=== PATIENT | female | born 1985 | race Caucasian/White ===

== ENCOUNTER → 2018-10-20 11:29 | Outpatient (CLI) | payer OTHER, SELFPAY ==
--- NOTE | 2018-10-20 11:31 | DI.RAD.S_ITS ---
PROCEDURE: HL HYSTEROSAPINGOGRAPHY INDICATIONS: infertility COMPARISON: None. FINDINGS: Patient had a documented negative test prior to the study. Following speculum insertion, a balloon-tip catheter was inserted into the cervical canal, and secured by inflating the balloon. Contrast was then injected into the endometrial canal. Uterus: The uterine cavity appears normal in size and morphology, without synechiae or masses. Fallopian tubes: Both fallopian tubes fill with contrast, and appear normal in caliber and morphology. Rapid dispersion of contrast into the peritoneal cavity through the fallopian tubes. IMPRESSION: Normal exam. Dictated by: Stas Garcia M.D. on 10/20/2018 at 14:15 Approved by: Stas Garcia M.D. on 10/20/2018 at 14:16
== END ==
PROVIDERS: PCP Family Medicine
DX: Z31.9 Encounter for procreative management, unspecified (principal)
CPT/HCPCS: 74740

== ENCOUNTER → 2019-02-10 11:03 | Outpatient (CLI) | payer OTHER, SELFPAY ==
[2019-02-10 15:15] LABS: Urine N gonorrhoeae NOT DETECTED
[2019-02-10 15:17] LABS: Urine Chlamydia NOT DETECTED
== END ==
PROVIDERS: PCP Family Medicine
DX: Z34.81 Encounter for supervision of other normal pregnancy, first trimester (principal); Z3A.09 9 weeks gestation of pregnancy
CPT/HCPCS: 87491; 87591

== ENCOUNTER → 2019-03-02 12:32 | Outpatient (CLI) | payer OTHER, SELFPAY ==
[2019-03-02 13:07] LABS: Appearance Urine UA CLEAR; Bilirubin Urine UA NEGATIVE (NEGATIVE); Color Urine UA YELLOW; Glucose Urine UA NEGATIVE (Negative); Ketones Urine UA NEGATIVE (NEGATIVE); Leukocyte Esterase Urine UA NEGATIVE (NEGATIVE); Nitrite Urine UA NEGATIVE (Negative); Occult Blood Urine UA NEGATIVE (Negative); Protein Urine UA NEGATIVE (Negative); Specific Gravity Urine UA <=1.005 (1.000-1.035); Urobilinogen Urine UA 0.2 E.U./dL (0.2)
[2019-03-02 13:20] LABS: Add Manual Diff / Slide Review NO; Basophils Absolute Auto 0 /uL (0-100); Basophils Percent Auto 0.2 % (0-2); Eosinophils Absolute Auto 100 /uL (0-450); Eosinophils Percent Auto 0.7 % (2-4); Hematocrit 40.5 % (36-46); Hemoglobin 13.9 g/dL (12.0-16.0); Lymphocytes Absolute Auto 2000 /uL (1100-4500); Lymphocytes Percent Auto 19.4 % (25-40); Mean Corpuscular HGB Conc 34.3 % (30-36); Mean Corpuscular Hemoglobin 30.2 PG (26-34); Mean Corpuscular Volume 88.1 fL (80-100); Monocytes Absolute Auto 400 /uL (0-900); Monocytes Percent Auto 4.1 % (3-14); Neutrophils Absolute Auto 7600 /uL (1500-7000); Neutrophils Percent Auto 75.6 % (50-75); Platelet Count 241 X10^3/uL (150-400); Red Cell Distribution Width 12.2 % (11.6-14.8); White Blood Cell Count 10.1 X10^3/uL (4.5-11.0)
[2019-03-02 14:07] LABS: Glucose 80 mg/dL (70-100)
[2019-03-02 15:56] LABS: Hepatitis B Surface Antigen NEGATIVE s/c (NEGATIVE); Rubella Antibody IgG 54.8 IU/mL (>15)
[2019-03-02 16:06] LABS: HIV 1 & 2 Ab/Ag 4th Gen Combo NEGATIVE (NEGATIVE); Hep C Virus Ab w/Reflex Quant NEGATIVE s/c (NEGATIVE)
[2019-03-04 19:21] LABS: RPR Screen Nonreactive (Nonreactive)
== END ==
PROVIDERS: PCP Family Medicine
DX: Z34.81 Encounter for supervision of other normal pregnancy, first trimester (principal)
CPT/HCPCS: 36415; 80055; 81003; 82947; 83036; 86787; 86803; 86850; 86900; 86901; 87086; 87389

== ENCOUNTER → 2019-03-10 16:42 | Outpatient (CLI) | payer OTHER, SELFPAY ==
[2019-03-16 11:46] LABS: Sequential Screen 1st Trimeste FINAL RESULT PENDING
== END ==
PROVIDERS: PCP Family Medicine
DX: Z34.81 Encounter for supervision of other normal pregnancy, first trimester (principal); Z36.0 Encounter for antenatal screening for chromosomal anomalies; Z3A.13 13 weeks gestation of pregnancy
CPT/HCPCS: 36415; 84163; 84702

== ENCOUNTER → 2019-04-07 12:13 | Outpatient (CLI) | payer OTHER, SELFPAY ==
[2019-04-11 14:03] LABS: Sequential Screen 2nd Trimeste SCREEN NEGATIVE
== END ==
PROVIDERS: PCP Family Medicine
DX: Z34.82 Encounter for supervision of other normal pregnancy, second trimester (principal); Z36.0 Encounter for antenatal screening for chromosomal anomalies
CPT/HCPCS: 36415; 82105; 82677; 84163; 84702; 86336

== ENCOUNTER → 2019-06-30 09:52 | Outpatient (CLI) | payer OTHER, SELFPAY ==
[2019-06-30 12:40] LABS: Hematocrit 34.2 % (36-46); Hemoglobin 11.6 g/dL (12.0-16.0)
[2019-06-30 12:59] LABS: GTT (PREG) 1 Hour PP 50gm Dose 146 mg/dL (76-139)
== END ==
PROVIDERS: PCP Family Medicine
DX: Z34.82 Encounter for supervision of other normal pregnancy, second trimester (principal); Z3A.24 24 weeks gestation of pregnancy
CPT/HCPCS: 36415; 82950; 85014; 85018

== ENCOUNTER → 2019-07-24 08:18 | Outpatient (CLI) | payer OTHER, SELFPAY ==
[2019-07-24 09:31] LABS: Glucose Fasting 89 mg/dL (70-100)
[2019-07-24 10:49] LABS: Glucose 1 Hour 136 mg/dL (70-170)
[2019-07-24 11:39] LABS: Glucose Tol Interpretation INTERPRETATION
[2019-07-24 13:08] LABS: Glucose 2 Hour 129 mg/dL (70-140)
[2019-07-24 13:13] LABS: Glucose 3 Hour 115 mg/dL (70-115)
== END ==
PROVIDERS: PCP Family Medicine
DX: O99.810 Abnormal glucose complicating pregnancy (principal); Z3A.30 30 weeks gestation of pregnancy
CPT/HCPCS: 36415; 82951; 82952

== ENCOUNTER → 2019-08-11 11:25 | Outpatient (CLI) | payer OTHER, SELFPAY ==
[2019-08-12 10:06] LABS: Strep Grp B PCR NEG for Grp B Strep
== END ==
PROVIDERS: PCP Family Medicine
DX: Z34.83 Encounter for supervision of other normal pregnancy, third trimester (principal); Z3A.35 35 weeks gestation of pregnancy
CPT/HCPCS: 87653

== ENCOUNTER → 2019-09-06 09:23 | Outpatient (CLI) | payer OTHER, SELFPAY ==
[2019-09-06 22:43] LABS: COVID19 Sendout Not Detected (Not Detect)
== END ==
PROVIDERS: PCP Family Medicine; Visit Provider Registered Nurse
DX: Z01.812 Encounter for preprocedural laboratory examination (principal)
CPT/HCPCS: 87635

== ENCOUNTER 2019-09-08 05:40 | Inpatient (IN) | payer OTHER, SELFPAY ==
[2019-09-08] VITALS (7 sets, daily range): BP systolic 99–138; BP diastolic 60–81; PULSE 65–75; RESP 12–16; TEMP 36.4–37.3; O2SAT 99–100
--- NOTE | 2019-09-08 | PATH_ITS ---
[facility] Accession Number: [id number] . 01 Material submitted: . fallopian tube - SEGMENTS OF BILATERAL FALLOPIAN TUBES . 02 Diagnosis: Segments of Bilateral Fallopian Tubes, Tubal Ligation: Complete cross-section of segments of fallopian tube x2. V 09/11/2019 1016 Local . 02 Electronically signed: . Geena Aragon MD, Pathologist NPI- [id number] . 01 Gross description: . Received in one formalin-filled container, labeled with the patient's name and labeled segments of mike fallopian tubes, are two nonfimbriated, cylindrical-shaped portions of tissue. The first measures 0.6 x 0.5 x 0.5 cm; bisected and totally submitted in cassette A1. The second piece measures 0.6 x 0.5 x 0.5 cm; bisected and totally submitted in cassette A2. ([id number]) /[facility] 09/09/2019 1038 Local . 02 Pathologist provided ICD-10: Z98.891, Z30.2 . 02 CPT . 904644 Performed at: 01 [facility] [address], [place], [place] [id number] MD Kaiden Villa MD Phone: [phone] Performed at: 02 [facility] [address] [place], [place] [id number] MD Quiana Corrales MD Phone: [phone]
[2019-09-08 06:36] LABS: Add Manual Diff / Slide Review NO; Basophils Absolute Auto 0 /uL (0-100); Basophils Percent Auto 0.2 % (0-2); Eosinophils Absolute Auto 100 /uL (0-450); Eosinophils Percent Auto 0.9 % (2-4); Hematocrit 36.3 % (36-46); Hemoglobin 12.6 g/dL (12.0-16.0); Lymphocytes Absolute Auto 2200 /uL (1100-4500); Mean Corpuscular HGB Conc 34.6 % (30-36); Mean Corpuscular Hemoglobin 31.5 PG (26-34); Mean Corpuscular Volume 90.9 fL (80-100); Monocytes Absolute Auto 500 /uL (0-900); Monocytes Percent Auto 4.7 % (3-14); Neutrophils Absolute Auto 7700 /uL (1500-7000); Neutrophils Percent Auto 73.2 % (50-75); Platelet Count 185 X10^3/uL (150-400); Red Blood Cell Count 3.99 X10^6/uL (4.0-5.2); Red Cell Distribution Width 13.2 % (11.6-14.8); White Blood Cell Count 10.5 X10^3/uL (4.5-11.0)
--- NOTE | 2019-09-08 07:22 | PM.OBHP.1 ---
OB HPI Date/Time Date of admission: 09/08/19 Date Patient Seen: 09/08/19 Time Patient Seen: 07:22 History of Present Condition Chief complaint: [id number] : 3 Para: 1 Estimated Date of Delivery: 09/15/19 Estimated Gestational Age (weeks): 39 Narrative: Brenda Middleton is a 34 year old female admitted for repeat and bilateral tubal ligation Indications Operative indications ( section): previous uterine surgery History of Present care: good care, initiated at week # (8), number of visits (12) and pounds weight gain (23) Dating criteria: based on 1st trimester US only Ultrasounds: normal mid trimester US Obstetrical complications: none Medical complications: none Preadmission Labs Blood type: O (+) positive -: Antibody screen: negative, GBS status: negative, HBsAG: negative, HIV: negative and RPR/VDLR: negative -: Chlamydia screen: not detected and Gonorrhea screen: not detected -: Rubella: immune and Varicella: immune HCAB: negative PAP: Normal Sequential screen: Normal 3 hr GTT: 1 hr (136), 2 hr (129) and 3 hr (115) Fasting blood glucose: 89 Prior (ies) History: 10/07/2014 41.4 weeks emergency for abruption, female 8 lb 1 oz Evaluation Evaluation Baseline heart rate: 125 Variability: Moderate (11-25) monitor accelerations: Present monitor decelerations: Absent Contraction Frequency (minutes): 0 Category of Tracing: I Laboratory results: Laboratory Tests 09/08/19 09/08/19 06:10 06:10 WBC 10.5 RBC 3.99 L Hgb 12.6 Hct 36.3 MCV 90.9 MCH 31.5 MCHC 34.6 RDW 13.2 Plt Count 185 Neut % (Auto) 73.2 Lymph % (Auto) 21.0 L [place] % (Auto) 4.7 Eos % (Auto) 0.9 L Baso % (Auto) 0.2 Neut # (Auto) 7700 H Lymph # (Auto) 2200 [place] # (Auto) 500 Eos # (Auto) 100 Baso # (Auto) 0 Blood Type O Positive Antibody Screen Negative [facility] Medical History (Updated 02/07/19 @ 12:20 by Linda Heard RN) Anxiety (Chronic) Genital warts (Chronic ~2005) Human papilloma virus (Chronic ~2005) Infertility (Acute) Surgical History (Updated 02/07/19 @ 12:17 by Linda Heard RN) H/O colposcopy with cervical biopsy (Acute) Status post delivery (10/17/14) Family History (Updated 02/07/19 @ 12:18 by Linda Heard RN) Grandmother Cancer Grandfather No problems noted. Grandfather No problems noted. Mother Anxiety Social History marital status: number of children: 1 household members: spouse lives independently: Yes pets and animals: Yes education level: college occupational status: employed current occupational exposures/hazards: No special amaya needs: No travel history: recent leisure activities: exercise Smoking Status: Former smoker alcohol intake: current substance use type: does not use during the past year weight has: remained stable Type(s) of exercise: walking Meds Home Medications and Allergies Home Medications Medication Instructions Recorded Confirmed Type VIT/IRON FUMARATE/FA 1 ea PO Q DAY #30 ea 04/28/16 09/01/19 Rx (MYNATAL-Z CAPTAB) Allergies Allergy/AdvReac Type Severity Reaction Status Date / Time No Known Drug Allergies Allergy Verified 09/07/19 07:16 Review of Systems Review of Systems Narrative: Patient denies headaches, scotomata, epigastric pain. Good movement. No rupture membranes. ROS: Yes All systems reviewed with the patient and are negative except as otherwise documented Exam Vital Signs (past 8 hours): Blood pressure 138/81, pulse of 83, temperature 99.2? Narrative Exam Narrative: HEENT exam within normal limits. Lungs are clear to auscultation and percussion. Heart is regular rate and rhythm no S3-S4 or murmurs. Abdomen is gravid and nontender. Fetus is vertex. Extremities without edema and nontender Objective Labs Result Diagrams: 09/08/19 06:10 Labs: Laboratory Results - last 24 hr 09/08/19 09/08/19 06:10 06:10 WBC 10.5 RBC 3.99 L Hgb 12.6 Hct 36.3 MCV 90.9 MCH 31.5 MCHC 34.6 RDW 13.2 Plt Count 185 Neut % (Auto) 73.2 Lymph % (Auto) 21.0 L [place] % (Auto) 4.7 Eos % (Auto) 0.9 L Baso % (Auto) 0.2 Neut # (Auto) 7700 H Lymph # (Auto) 2200 [place] # (Auto) 500 Eos # (Auto) 100 Baso # (Auto) 0 Blood Type O Positive Antibody Screen Negative Assessment and Plan Assessment and Plan Assessment and Plan narrative: 39 week gestation with prior section and undesired fertility requesting repeat section and bilateral tubal ligation
--- NOTE | 2019-09-08 07:29 | PM.PREOP ---
Pre-operative Note COVID-19 COVID-19 status: Negative Result date/Date tested (Pos, Neg/Pending): 09/06/19 Interval Note History & Physical reviewed/Exam performed by Physician: Yes Changes to H&P: No
[2019-09-08] MEDS: CEFAZOLIN 2 GM/100 ML FROZ.PIGGY IV (07:35)
--- NOTE | 2019-09-08 08:00 | SUR.OPER ---
Supine on Padded OR bed, head on pillow, safety belt at thigh, arms secured on padded arm boards at <90 degrees abduction. Bump under right buttock. Legs uncrossed with pillow under knees, gel pad to heels, tape over blanket to lower legs.
--- NOTE | 2019-09-08 08:12 | SUR.OPER ---
FHR 150 TOB at 08:02 alive baby boy Cord blood x 2 and placenta given to OB nurse
[2019-09-08] MEDS: KETOROLAC 30 MG/ML VIAL IV ×3 (08:20→20:40)
[2019-09-08] MEDS: LACTATED RINGERS 1,000 ML 100 ML IV ×2 (08:24→10:15)
--- NOTE | 2019-09-08 08:50 | PM.OP.1 ---
Operative Date/Time/Diagnoses Date of procedure: 09/08/19 Time of procedure: 08:50 Pre-op diagnosis: 39 weeks with prior section and sterilization Post-op diagnosis: same Procedure & Clinicians Procedure: Repeat low-transverse section with bilateral tubal ligation Same procedure as scheduled: Yes Indications: 39 weeks with prior section and wish for sterilization Surgeon: Cecilia Chu [employer] Specialist: Liset Santa Click Yes if Unassisted: No Anesthesia Type: Spinal Operative Notes Findings: Normal tubes, ovaries with mild adhesions between the tubes and ovaries. Extremely thin lower uterine segment. Viable male weighing 8 lb 11 oz with Apgars of 8 and 9 Closure Type: primary Specimen(s): other (Bilateral tubal segment) Applied: catheter (Kauffman) Estimated Blood Loss (mL): 450 Blood products transfused: none Procedure in detail: The patient was brought to the operating room where she underwent a spinal for anesthesia. She was placed in a supine position with a left lateral tilt. A Kauffman catheter was placed. Pulsatile stockings were placed and functional throughout the case. 2 g of Ancef were given IV prior to the incision. Warming was in place. The patient was prepped and draped in usual sterile fashion. A low transverse incision was made with a scalpel and the incision was carried down to the fascial layer which was incised transversely with scissors. The midline attachments are superiorly and inferiorly. Some bleeding was controlled Bovie. The rectus muscles were in the midline and the peritoneal incision was made with no damage to internal structures. The peritoneum was incised and superiorly and inferiorly. Bladder blade was placed and a bladder flap was developed and the bladder held away from the lower uterine segment. An incision was made in the uterus with the scalpel and the incision was extended with stretching. The head was elevated out of the abdomen and with fundal pressure the baby was delivered. The was bulb suctioned for clear fluid and handed off to the warmer. Cord blood was collected. The placenta delivered spontaneously with traction. The uterus was cleaned with clean laps. The uterine incision was closed in 2 layers of 0 chromic suture the first a running locking layer the second an imbricating layer. The bladder peritoneum was repaired with 2-0 Vicryl suture. The gutters were cleaned of any remaining fluids and ovaries and tubes were observed to be normal. Cheswold was used to grasp the fallopian tube on the right side. A segment of the tube was tied off x2 with 0 plain suture with the intervening section removed. Adequate hemostasis was noted. The perineum was closed with 2-0 Vicryl suture. The fascia layer was closed with 0 Vicryl suture with 2 stitches. The incision was irrigated and adequate hemostasis noted. The incision was closed with interrupted 3-0 Vicryl sutures and then a subcuticular stitch of 4-0 Vicryl suture. Steri-Strips were placed. The uterus was massaged to remove any clots. The patient went to recovery room in good condition. Counts of instruments and sponges were correct. Complications: none Post-operative Condition: stable Disposition: other ( Center) Plan for aftercare: Routine post section
[2019-09-08] MEDS: LANOLIN OINT 7 GM 1 APPLIC TOP (12:01)
[2019-09-08] MEDS: OXYCODONE IR 10 MG TABLET PO ×2 (12:01→16:21)
[2019-09-08] MEDS: ACETAMINOPHEN 325 MG TABLET 650 MG PO (20:40)
[2019-09-09] MEDS: KETOROLAC 30 MG/ML VIAL IV (02:40)
[2019-09-09] MEDS: ACETAMINOPHEN 325 MG TABLET 650 MG PO ×2 (02:40→09:47)
[2019-09-09 06:46] LABS: Add Manual Diff / Slide Review NO; Basophils Absolute Auto 0 /uL (0-100); Basophils Percent Auto 0.3 % (0-2); Eosinophils Absolute Auto 100 /uL (0-450); Eosinophils Percent Auto 1.4 % (2-4); Hematocrit 30.4 % (36-46); Hemoglobin 10.4 g/dL (12.0-16.0); Lymphocytes Absolute Auto 2100 /uL (1100-4500); Lymphocytes Percent Auto 20.3 % (25-40); Mean Corpuscular HGB Conc 34.2 % (30-36); Mean Corpuscular Hemoglobin 31.6 PG (26-34); Mean Corpuscular Volume 92.3 fL (80-100); Monocytes Absolute Auto 700 /uL (0-900); Monocytes Percent Auto 6.3 % (3-14); Neutrophils Absolute Auto 7500 /uL (1500-7000); Neutrophils Percent Auto 71.7 % (50-75); Platelet Count 139 X10^3/uL (150-400); Red Blood Cell Count 3.29 X10^6/uL (4.0-5.2); Red Cell Distribution Width 13.3 % (11.6-14.8); White Blood Cell Count 10.5 X10^3/uL (4.5-11.0)
[2019-09-09] MEDS: DOCUSATE 250 MG CAPSULE PO (09:03)
[2019-09-09] MEDS: IBUPROFEN 600 MG TABLET PO ×2 (09:05→17:45)
--- NOTE | 2019-09-09 10:41 | PM.OBPN.1 ---
Subjective - OB Subjective Patient comments: incisional pain baby status: nursing well feeding status: exclusively breast feeding Date Patient Seen: 09/09/19 Time Patient Seen: 10:41 Interval history: Post section day 1. Patient is able to urinate since Kauffman catheter removed. She is not passing gas yet. She is ambulatory. She does complain of incision and pain and cramping with breast-feeding but overall is doing well. She denies headaches, scotomata, epigastric pain. Exam Vital Signs (past 8 hours): Blood pressure 105/58, pulse 75, temperature 98.1? Oxygen Delivery Method Room Air Narrative Exam Narrative: Abdomen is soft, nontender. Uterus is firm, at U, appropriately tender. Dressing is clean, dry, intact. Mild lochia. Extremities with trace edema and nontender. Patient's blood type is O positive, she is rubella immune. She did not received Tdap. Objective Labs Result Diagrams: 09/09/19 06:20 Labs: Laboratory Results - last 24 hr 09/09/19 06:20 WBC 10.5 RBC 3.29 L Hgb 10.4 L Hct 30.4 L MCV 92.3 MCH 31.6 MCHC 34.2 RDW 13.3 Plt Count 139 L Neut % (Auto) 71.7 Lymph % (Auto) 20.3 L [place] % (Auto) 6.3 Eos % (Auto) 1.4 L Baso % (Auto) 0.3 Neut # (Auto) 7500 H Lymph # (Auto) 2100 [place] # (Auto) 700 Eos # (Auto) 100 Baso # (Auto) 0 Assessment & Plan Assessment and Plan (1) Delivery by section: Status: Acute (2) Sterilization: Status: Acute Plan day: 1 plan OB: routine postop care Comments: Patient is doing well. She has not passed gas yet. Patient is considering going home later today or tomorrow. Time Spent With Patient Time: Total time spent is greater than 50% in coordination of care (as documented) at patient's floor/unit and/or counseling patient: Time with patient: less than 15 minutes
[2019-09-09] MEDS: OXYCODONE IR 10 MG TABLET PO ×2 (17:45→22:00)
[2019-09-10] MEDS: IBUPROFEN 600 MG TABLET PO ×2 (01:50→07:51)
[2019-09-10] MEDS: OXYCODONE IR 10 MG TABLET PO ×2 (01:50→09:40)
[2019-09-10] MEDS: DOCUSATE 250 MG CAPSULE PO (07:51)
--- NOTE | 2019-09-10 08:37 | P.DS_ITS ---
Discharge Providers Provider Date of admission: 09/08/19 05:40 Discharge Date: 09/10/19 Primary care physician: Ann-Marie Ferreira DO Consults: 09/08/19 09:57 Consult to Dining Room Attendant Routine Comment: Discharge provider: Ann-Marie Ferreira DO Summary Hospital Course Date Patient Seen: 09/10/19 Time Patient Seen: 08:37 Procedures: Repeat low transverse section with bilateral tubal ligation Hospital Course: Patient is a 34-year-old G3-now-P2 after uncomplicated repeat C- section with bilateral tubal ligation. course has been uncomplicated. She is ambulating, eating, voiding and passing flatus. Vaginal bleeding is light. Pain well controlled with ibuprofen and oxycodone. is going very well. No issues in the . She will follow-up in clinic in 1 week for Aquacel removal. Advised patient call for fevers, severe pain or bleeding through more than a pad an hour. Peripartum Data Infant Delivery Method: Section complications: none Jeffrey 1: Gender: Male Disposition of : home Discharge Diagnosis (1) Delivery by section: Status: Acute (2) Sterilization: Status: Acute Time Spent with Patient Time attestation: Total time spent providing and/or coordinating discharge services: Objective Labs Result Diagrams: 09/09/19 06:20 Exam Vital Signs (past 8 hours): Oxygen Delivery Method Room Air Temperature 98.2? blood pressure 119/73 heart rate 88 Narrative Exam Narrative: General: Awake and alert, no acute distress. HEENT: NCAT, EOMI, moist oral mucosa CV: Regular rate and rhythm, no murmurs, rubs or gallops Lungs: CTAB, no wheezes, rales, or rhonchi Abdomen: Aquacel dressing intact without drainage. Soft, nontender; bowel tones active; uterus firm 1 cm below umbilicus. Extremities: Warm, no edema bilaterally Discharge Plan Discharge Plan Patient Disposition: Home Discharge orders & Medications Prescriptions: New ibuprofen 600 mg Tablet 600 mg PO Q6HR PRN (Reason: Fever/Mild Pain (1-3)) Qty: 30 RF: 0 oxycodone-acetaminophen [Percocet] 5-325 mg tablet 2 tab PO Q4-6H PRN (Reason: pain) Qty: 30 RF: 0 oxycodone-acetaminophen [Percocet] 5-325 mg tablet 2 tab PO Q4-6H PRN (Reason: pain) Qty: 30 RF: 0 ibuprofen 600 mg tablet 600 mg PO Q6H PRN (Reason: pain) Qty: 30 RF: 0 Continued VIT/IRON FUMARATE/FA (MYNATAL-Z CAPTAB) 1 ea PO Q DAY Qty: 30 RF: 11 Follow up/Referrals: Cecilia Chu MD [Physician] - 1 Week (Will need to be seen by Dr. Santa or Dr. Rodriguez for Aquacel removal and incision check) Ann-Marie Ferreira DO [Primary Care Provider] - Diet/Activity/Treatments Diet: Regular Activity: No lifting over 20 lb or or anything in vagina for 6 weeks Skin/Wound/Dressing Care Report to your healthcare provider any signs of infection, such as:: chills, fever and increased pain Dressing: Leave dressing in place until one-week follow-up visit Visit Report/Discharge Packet Visit Report Forms: Patient Portal/API, Stroke Signs & Symptoms Discharge Data Primary Care Provider: Ann-Marie Ferreira
[2019-09-10 08:48] VITALS: BP 119/73; PULSE 88; RESP 17; TEMP 36.8
== END 2019-09-10 12:00 | disposition home or self-care (01) | DRG 785 ==
PROVIDERS: Admitting Provider Specialist; PCP Family Medicine; Referring Provider Specialist; Visit Provider Specialist
PROC: 10D00Z1 Extraction of Products of Conception, Low, Open Approach (ICD-10-PCS; CPT 59514; principal; 2019-09-08 07:45)
DX: O34.219 Maternal care for unspecified type scar from previous cesarean delivery (principal); Z30.2 Encounter for sterilization; Z3A.39 39 weeks gestation of pregnancy; Z37.0 Single live birth; N73.6 Female pelvic peritoneal adhesions (postinfective); Z01.812 Encounter for preprocedural laboratory examination
CPT/HCPCS: 36415; 58611; 59050; 59510; 59514; 85025; 86850; 86900; 86901; 87635; J0690; J1885; J2274; J2405; J2590; J3010

== ENCOUNTER → 2020-05-01 17:40 | Outpatient (CLI) | payer OTHER, SELFPAY ==
[2020-05-01 20:11] LABS: Influenza A - CEPHEID Flu A NEGATIVE (NEGATIVE); Influenza B - CEPHEID Flu B NEGATIVE (NEGATIVE)
[2020-05-01 20:53] LABS: COVID19 -Nasal RAPID POSITIVE (Negative)
== END ==
PROVIDERS: PCP Family Medicine; Visit Provider Physician Assistant
DX: U07.1 COVID-19 (principal)
CPT/HCPCS: 87502; 87635